=== PATIENT | male | born 1960 | race African-American/Black ===

== ENCOUNTER 2018-02-27 06:38 | Emergency (ER) | payer MEDICARE, MEDICAID ==
[~2018-02-27] VITALS: Ht 182.9 cm; Wt 179.7 kg
[~2018-02-27 06:38] MED LIST: ASPI81TA52 PO; CETI-1 PO; HYDR-565 PO; IBUP-1984 PO; LOTE5DRO3 RIGHTEYE; METF500T PO; OMEP-84 PO; PRED1DRO LEFTEYE; SIMV10TA2 PO
[2018-02-27 07:03] VITALS: BP 150/85
[2018-02-27] MEDS ORDERED: BENZ-16 PO (07:14)
[2018-02-27] MEDS ORDERED: LIDOcaine Viscous 15ml cup PO ONE (07:15)
[2018-02-27] MEDS ORDERED: mag hydrox/Alum hydrox/simeth 30ml oral suspension PO ONE (07:15)
[2018-02-27] MEDS ORDERED: benzonatate 100mg capsule PO ONE (07:15)
[2018-02-27] MEDS ORDERED: CHLO25TA2 PO (19:33)
[2018-02-27] MEDS ORDERED: AMIT-189 PO (19:33)
[2018-02-27] MEDS ORDERED: TRAM50TA2 PO (19:33)
[2018-02-27] MEDS ORDERED: LOSA25TA96 PO (19:33)
[2018-02-27] MEDS ORDERED: PARO40TA4 PO (19:33)
[2018-03-01] MEDS ORDERED: LEVO500T2 PO (13:18)
== END 2018-02-27 07:31 | disposition home or self-care (01) ==
LOC: ER 06:38
DX: J06.9 Acute upper respiratory infection, unspecified (principal); E78.00 Pure hypercholesterolemia, unspecified; I10 Essential (primary) hypertension; J44.9 Chronic obstructive pulmonary disease, unspecified; E11.9 Type 2 diabetes mellitus without complications; G89.29 Other chronic pain; K21.9 Gastro-esophageal reflux disease without esophagitis; E66.01 Morbid (severe) obesity due to excess calories; Z68.43 Body mass index [BMI] 50.0-59.9, adult; Z87.891 Personal history of nicotine dependence; Z98.890 Other specified postprocedural states; Z56.0 Unemployment, unspecified; Z88.2 Allergy status to sulfonamides; Z91.013 Allergy to seafood; Z79.82 Long term (current) use of aspirin; Z79.84 Long term (current) use of oral hypoglycemic drugs; Z79.899 Other long term (current) drug therapy
CPT/HCPCS: 99284